=== PATIENT | female | born 2000 | race American Indian/Alaskan Native ===

== ENCOUNTER 2021-11-02 18:19 | Emergency (ER) | payer SELFPAY ==
[2021-11-02 18:36] VITALS: BP 128/90
[2021-11-02] MEDS ORDERED: ACETAMINOPHEN 325 MG TAB PO ONE (19:30)
--- NOTE | 2021-11-02 19:33 | Emergency Department Report ---
- General Chief Complaint: Pain General Stated Complaint: MY WHOLE BODY IS ACHING Time Seen by Provider: 11/02/21 19:25 Source: patient Mode of arrival: Ambulatory Limitations: No Limitations - History of Present Illness Initial Comments: Patient is a 21-year-old female presents emergency room with complaints of generalized body aches that began yesterday. She has associated headache, chills, rhinorrhea, fever. She denies any vomiting, diarrhea, cough, shortness of breath, abdominal pain, urinary symptoms. She denies any known sick contacts or recent travel. She has not been vaccinated for COVID-19. No past medical history. No allergies medications - Related Data Previous Rx's Medication Instructions Recorded Last Taken Type Acetaminophen [Tylenol] 650 mg PO Q8HR PRN #20 capsule 11/02/21 Unknown Rx Benzonatate [Tessalon Perles] 100 mg PO Q8HR PRN #10 capsule 11/02/21 Unknown Rx guaiFENesin ER [Mucinex ER] 600 mg PO Q12H #14 tablet.er 11/02/21 Unknown Rx Allergies Allergy/AdvReac Type Severity Reaction Status Date / Time No Known Allergies Allergy Unverified 11/02/21 18:31 ED Review of Systems ROS: Stated complaint: MY WHOLE BODY IS ACHING Other details as noted in HPI Comment: All other systems reviewed and negative ED Past Medical Hx - Medications Home Medications: Home Medications Medication Instructions Recorded Confirmed Last Taken Type Acetaminophen [Tylenol] 650 mg PO Q8HR PRN #20 capsule 11/02/21 Unknown Rx Benzonatate [Tessalon Perles] 100 mg PO Q8HR PRN #10 capsule 11/02/21 Unknown Rx guaiFENesin ER [Mucinex ER] 600 mg PO Q12H #14 tablet.er 11/02/21 Unknown Rx ED Physical Exam - General Limitations: No Limitations General appearance: alert, in no apparent distress - Head Head exam: Present: atraumatic, normocephalic - Eye Eye exam: Present: normal appearance - ENT ENT exam: Present: normal orophraynx, mucous membranes moist, TM's normal bilaterally, normal external ear exam - Respiratory Respiratory exam: Present: normal lung sounds bilaterally. Absent: respiratory distress, wheezes, rales, rhonchi, stridor, chest wall tenderness, accessory muscle use, decreased breath sounds, prolonged expiratory - Cardiovascular Cardiovascular Exam: Present: regular rate, normal rhythm, normal heart sounds. Absent: systolic murmur, diastolic murmur, rubs, gallop - Neurological Exam Neurological exam: Present: alert, oriented X3 - Psychiatric Psychiatric exam: Present: normal affect, normal mood - Skin Skin exam: Present: warm, dry, intact ED Course Vital Signs 11/02/21 18:35 Temperature 99.7 F H Pulse Rate 104 H Respiratory 20 Rate Blood Pressure 128/90 [Right] O2 Sat by Pulse 99 Oximetry ED Medical Decision Making - Medical Decision Making Patient is a 21-year-old female presents emergency room with complaints of generalized body aches that began yesterday. She has associated headache, chills, rhinorrhea, fever. She denies any vomiting, diarrhea, cough, shortness of breath, abdominal pain, urinary symptoms. She denies any known sick contacts or recent travel. She has not been vaccinated for COVID-19. No past medical history. No allergies medications. Vitals with mild low-grade temperature. Breath sounds are clear bilaterally, no wheezing, no rales, no rhonchi, normal oropharynx, normal TMs and canals. Symptoms likely related to URI. Offered patient flu testing and she declined. offered patient Tylenol and she declined and states that she can take that at home. Patient does not have clinical indication for narcotics at this time. Discussed supportive care and symptomatic treatment with patient. Advised patient Please take medication as prescribed as needed. Increase your fluid intake over the next several days. Follow-up with your primary care doctor for reexamination. Return to emergency room for any new or worsening symptoms. Recommend outpatient COVID-19 testing if positive need to self quarantine for 10 days from onset of symptoms. Patient left prior to receiving her prescriptions She may use [id number] medications to help with her URI symptoms. Critical care attestation.: If time is entered above; I have spent that time in minutes in the direct care of this critically ill patient, excluding procedure time. ED Disposition Clinical Impression: Upper respiratory infection Qualifiers: URI type: unspecified URI Qualified Code(s): J06.9 - Acute upper respiratory infection, unspecified Disposition: HOME / SELF CARE / HOMELESS Is pt being admited?: No Does the pt Need Aspirin: No Condition: Stable Instructions: Viral Respiratory Infection Additional Instructions: Please take medication as prescribed as needed. Increase your fluid intake over the next several days. Follow-up with your primary care doctor for reexamination. Return to emergency room for any new or worsening symptoms. Recommend outpatient COVID-19 testing if positive need to self quarantine for 10 days from onset of symptoms. Prescriptions: guaiFENesin ER [Mucinex ER] 600 mg PO Q12H #14 tablet.er Benzonatate [Tessalon Perles] 100 mg PO Q8HR PRN #10 capsule PRN Reason: cough Acetaminophen [Tylenol] 650 mg PO Q8HR PRN #20 capsule PRN Reason: fever/pain Referrals: ELIANE MENDOZA MD [Staff Physician] - 3-5 Days [facility] [Provider Group] - 3-5 Days Time of Disposition: 19:32 Print Language: OCCITAN
== END 2021-11-02 20:39 | disposition left against medical advice (07) ==
LOC: ED 18:19
DX: J06.9 Acute upper respiratory infection, unspecified (principal); Z79.899 Other long term (current) drug therapy
CPT/HCPCS: 99281